=== PATIENT | male | born 1965 | race Caucasian/White ===

== ENCOUNTER 2020-02-02 06:14 | Day surgery (SDC) | payer MEDICAID ==
[~2020-02-02] VITALS: Ht 165.1 cm; Wt 60.0 kg
[~2020-02-02 06:14] MED LIST: AMAN-6 GT; BUDE0.5A3 NEB; FAMO20 GT; IPRA4AER IH; LORA-999 GT; QUET25TA GT; RIVA20TA GT; SODIUM CHLORIDE 0.9% 1,000 ML ONE
[2020-02-02] MEDS ORDERED: LIDOCAINE 4% 50 ML SOLUTION TP ONE (06:15)
[2020-02-02] MEDS ORDERED: ALBUTEROL SULFATE 2.5 MG/0.5 ML NEB SOLUTION NEB ONE (06:15)
[2020-02-02] MEDS ORDERED: BENZOCAINE 20% 50 MCG/SPRAY 57 GM TP ONE (06:15)
[2020-02-02] MEDS ORDERED: SODIUM CHLORIDE 0.9% 1,000 ML IV ONE (06:30)
[2020-02-02] MEDS ORDERED: MIDAZOLAM HCL 2 MG/2 ML VIAL ONE (08:11)
[2020-02-02] MEDS ORDERED: FentaNYL CITRATE-PF 100 MCG/2 ML VIAL ONE (08:11)
[2020-02-02] MEDS ORDERED: MethylPREDNISolone SOD SUCC 125 MG/2 ML VIAL IVP ONE (09:00)
[2020-02-02] MEDS ORDERED: MethylPREDNISolone SOD SUCC 125 MG/2 ML VIAL ONE (09:22)
[2020-02-02] MEDS ORDERED: OXYGEN THERAPY IH SCH (20:00)
== END 2020-02-02 10:30 | disposition home or self-care (01) ==
LOC: SURGERY 06:14
PROVIDERS: ATTEND Internal Medicine Critical Care Medicine
DX: J38.4 Edema of larynx (principal); B37.0 Candidal stomatitis
CPT/HCPCS: 31623; 31624; 71045; 87015; 87070; 87077; 87101; 87206; 87220; 88108; 88312; J2250; J2930; J3010; J7030; J7613; Z7610